=== PATIENT | male | born 2000 | race African-American/Black ===

== ENCOUNTER 2023-06-05 13:26 | Emergency (ER) | payer SELFPAY ==
[~2023-06-05] VITALS: Ht 172.7 cm; Wt 137.4 kg
[2023-06-05 13:37] VITALS: O2SAT 97
[2023-06-05] MEDS ORDERED: IBUPROFEN 600MG TABLET PO ONE (14:45)
[2023-06-05 17:23] VITALS: BP 188/113; PULSE 95; RESP 16; TEMP 98.2
== END 2023-06-05 17:30 | disposition home or self-care (01) ==
LOC: ER 13:55
DX: M25.562 Pain in left knee (principal); I10 Essential (primary) hypertension
CPT/HCPCS: 29505; 73562; 99283